=== PATIENT | male | born 1975 | race Caucasian/White ===

== ENCOUNTER 2017-02-04 07:22 | Observation (INO) ==
[2017-02-04] MEDS ORDERED: ASPIRIN 325 MG TABLET PO STA (08:05)
[2017-02-04] MEDS ORDERED: ALUM/MAG/SIMETH/LIDO VISC 1:1 30 ML BOTTLE PO ONE (08:06)
[2017-02-04] MEDS ORDERED: ALUM/MAG/SIMETH/LIDO VISC 1:1 30 ML BOTTLE PO STA (08:10)
[2017-02-04 08:13] LABS: Basophils % 0.7 % (0.0-0.8); Eosinophils # 0.1 10*3/uL (0.0-0.87); Eosinophils % 2.1 % (0.00-10.9); Hemoglobin 15.9 GM/DL (14.0-18.0); Immature Granulocytes % 0.7 %; Immature Granulocytes Absolute 0.04 #; Lymphocytes # 1.9 10*3/uL (1.4-4.0); Lymphocytes % 32.9 % (21.2-54.2); Mean Corpuscular HGB Conc 35.3 GM/DL (32-36); Mean Corpuscular Hemoglobin 29 PG (27-34); Mean Corpuscular Volume 83.3 FL (87-102); Mean Platelet Volume 8.8 FL (9.6-12.0); Monocytes # 0.4 10*3/uL (0.11-0.8); Monocytes % 7.8 % (1.7-12.7); Neutrophils # 3.2 10*3/uL (1.4-7.4); Neutrophils % 55.8 % (38.7-73.9); Platelet Count 208 T/CUMM (130-400); Red Cell Distribution Width 12.3 % (9.3-17.3); White Blood Count 5.7 T/CUMM (4-12)
[2017-02-04 08:49] LABS: Alanine Aminotransferase 90 U/L (16-61); Albumin 4.1 G/DL (3.4-5.0); Alkaline Phosphatase 83 U/L (45-117); Aspartate Amino Transferase 47 U/L (0-37); Blood Urea Nitrogen 16 MG/DL (7-18); Glucose 108 MG/DL (74-106); Magnesium 2.1 MG/DL (1.8-2.4); Osmolality,Calculated 274.8 MOS/KG (273-304); Potassium 3.8 MMOL/L (3.5-5.1); Sodium 137 MMOL/L (136-145); Total Protein 7.9 G/DL (6.4-8.3); Troponin I Only < 0.015 NG/ML (0.00-0.045)
[2017-02-04] MEDS ORDERED: ASPIRIN 325 MG TABLET ONE (08:52)
[2017-02-04] MEDS ORDERED: ENOXAPARIN 120 MG/0.8 ML SYRINGE SUBCUT ONE (11:22)
[2017-02-04] MEDS ORDERED: ENOXAPARIN 100 MG/ML SYRINGE SUBCUT ONE (11:34)
[2017-02-04] MEDS ORDERED: ENOXAPARIN 40 MG/0.4 ML SYRINGE ONE (11:34)
[2017-02-04] MEDS: ENOXAPARIN 150 MG/ML SYRINGE SUBCUT SCH ×2 (11:36→21:50)
[2017-02-04] MEDS ORDERED: ACETAMINOPHEN 325 MG TABLET PO PRN (12:39)
[2017-02-04] MEDS ORDERED: ONDANSETRON 4 MG/2 ML VIAL IV PRN (12:39)
[2017-02-04] MEDS ORDERED: KETOROLAC 30 MG/1 ML VIAL IV ONE (16:45)
[2017-02-04] MEDS: DOCUSATE SODIUM 100 MG CAPSULE PO SCH (21:50)
[2017-02-05 05:30] LABS: Risk Ratio 4.9; VLDL CHOLESTEROL 57.4 MG/DL
[2017-02-05] MEDS ORDERED: ATORVASTATIN 20 MG TABLET PO SCH (09:00)
[2017-02-05] MEDS ORDERED: PANTOPRAZOLE 40 MG TABLET PO SCH (09:00)
[2017-02-05] MEDS: ENOXAPARIN 150 MG/ML SYRINGE SUBCUT SCH (09:11)
[2017-02-05] MEDS: DOCUSATE SODIUM 100 MG CAPSULE PO SCH (09:12)
[2017-02-05 16:38] VITALS: BP 173/100
== END 2017-02-05 17:50 | disposition home or self-care (01) ==
LOC: N.ED 07:22 → N.EDINP 07:22 → N.TELEN 12:30
PROVIDERS: ADMIT Family Medicine; ATTEND Family Medicine